=== PATIENT | female | born 1985 | race Caucasian/White ===

== ENCOUNTER 2017-11-01 14:23 | Emergency (ER) | payer MEDICAID, SELFPAY ==
[2017-11-01 14:27] VITALS: BP 123/84; PULSE 88; RESP 16; TEMP 36.6; O2SAT 97
--- NOTE | 2017-11-01 15:43 | ED.GENADUL_ITS ---
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 Otherwise follow-up with your primary care provider or [facility] for vaginal assessment as needed. To ensure that you received full treatment it is recommended that you have retesting in 1-2 months or if you become symptomatic. Due to medication he received in the emergency department please do not breast-feed for the next 48 hours and use formula. Referrals: Rufina Davies, [employer] [Primary Care Provider] - 1 week (For reassessment and vaginal exam) Discharge Data Discharge Date/Time-TO BE ENTERED AT DEPARTURE: 11/01/17 17:10 Medical Decision Making MDM Narrative Medical decision making narrative: Patient presenting to the emergency department for chief complaint of STD exposure. She states that he recently had testing and informed her that he had herpes but had not returned for any other test. Patient recently was seen by primary care and placed upon medication for concern of yeast infection but she states this is not cleared up. Patient is currently on her period and patient is deferring a vaginal exam and requesting that she have that done by her primary care provider or [facility]. Patient does state that she has been having some white discharge along with her. Urine gonorrhea chlamydia and urine was obtained. POC is negative so patient was treated with ceftriaxone, azithromycin, and placed upon Flagyl for possible trichomonas given her stating white discharge that had not cleared up. Patient denies any rash sores or lesions or any discomfort at this time and so I do not think that patient needs any antiviral medications but she was stated to follow-up with her primary care for reassessment in 1 week. Patient encouraged to return for any new or worsening symptoms including abdominal pain, nausea vomiting, fever chills after discussion of diagnosis and plan of care patient states no further needs, questions, or concerns at this time. HPI General Mode of arrival: ambulatory . Date/Time Provider Initiated Documentation: 11/01/17 15:34 . Limitations to Documentation: no limitations . Information obtained by: patient . History of Present Illness 32 year old F presents to the emergency department with the chief complaint of STD exposure, described as mild, Patient started experiencing this week(s) ( 2) and it has been constant. No relieving factors improve symptom(s), No exacerbating factors reported . Patient notes no other symptoms.. 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: 4 Review of Systems Constitutional Denies body ache(s), Denies chills and Denies fever(s) Cardiovascular Denies chest pain and Denies dyspnea Respiratory Denies dyspnea Gastrointestinal Denies abdominal pain, Denies nausea and Denies vomiting Genitourinary Reports as per HPI, Denies dysuria, Denies pelvic pain, Denies urinary incontinence, Reports vaginal discharge and Reports other (Currently having menses) Integumentary/Breasts Denies rash Neurologic Denies confusion and Denies sensory deficit Psychiatric Denies confusion PFSH Social History Smoking/Tobacco Use Status: Current every day Exam Const General: cooperative, no acute distress and not ill appearing Orientation: alert, awake and oriented x3 HENMT Mouth: moist mucous membranes Resp Effort & Inspection: normal respiratory effort, able to speak in complete sentences and no respiratory distress Cardio Rate: regular rate Rhythm: regular rhythm Skin General skin exam: no rashes or lesions noted Neuro General: alert, awake, oriented x3, moves all extremities and no focal motor deficits Sensory Exam: no sensory deficits noted Course Vital Signs Temperature 36.6 C 11/01/17 14:27 Pulse 88 11/01/17 14:27 Respiratory Rate 16 11/01/17 14:27 Blood Pressure 123/84 11/01/17 14:27 Pulse Oximetry 97 11/01/17 14:27 Temperature 36.6 C 11/01/17 14:27 Pulse 88 11/01/17 14:27 Respiratory Rate 16 11/01/17 14:27 Blood Pressure 123/84 11/01/17 14:27 Pulse Oximetry 97 11/01/17 14:27
[2017-11-01] MEDS: Azithromycin 250 MG TAB 1000 MG PO (16:58)
[2017-11-01] MEDS: cefTRIAXone 250 MG VIAL IM (16:58)
[2017-11-01] MEDS: metroNIDAZOLE 500 MG TAB PO (16:58)
[2017-11-01] MEDS: metroNIDAZOLE 500 MG TAB 1500 MG PO (17:05)
[2017-11-05 14:50] LABS: Chlamydia Result Negative; GC Result Negative; Specimen Description URINE
== END 2017-11-01 17:10 | disposition home or self-care (01) ==
PROVIDERS: Emergency Provider Nurse Practitioner Family; PCP Nurse Practitioner Adult Health
DX: Z20.2 Contact with and (suspected) exposure to infections with a predominantly sexual mode of transmission (principal)
CPT/HCPCS: 81025; 87491; 87591; 96372; 99284; J0696

== ENCOUNTER 2018-02-19 10:20 | Emergency (ER) | payer MEDICAID, SELFPAY ==
[2018-02-19 10:28] VITALS: BP 168/89; PULSE 83; RESP 16; TEMP 37; O2SAT 98
--- NOTE | 2018-02-19 10:38 | W.ED.GENAD ---
Discharge Plan Disposition Patient Disposition: HOME Condition: Improving Discharge Details Chief Complaint: Nk/Back Pain Clinical Impression: Low back pain Primary Care Provider: Rufina Davies ED Provider: Leonard Bernard Home Meds and New Rx's Prescriptions: New methocarbamol 500 mg tablet 500 mg PO Q6H PRN (Reason: Back pain or spasm) Qty: 10 RF: 0 Discharge Instructions Instructions: Low Back Strain (ED) Additional Instructions: Follow-up in clinic tomorrow as planned. Return for any acute concerns. Remove the Lidoderm patch in 12 hours. May use methocarbamol, as prescribed, as needed Medical Decision Making 33-year-old female with chronic low back pain for which she states she takes Percocet. She states she ran out of this medication last had a 10 days ago, has a follow-up appointment in clinic tomorrow. She did not fall or injure herself. She has no motor weakness, no sensory deficits. I discussed with her that she needs to follow-up with her prescriber for chronic narcotic refills. We will offer her Lidoderm patch and a small number of methocarbamol to be used as needed. She will follow-up in the [place] clinic tomorrow as planned. HPI General Mode of arrival: ambulatory. Date/Time Provider Initiated Documentation: 02/19/18 10:23. Limitations to Documentation: no limitations. Information obtained by: patient. History of Present Illness 33 year old F presents to the emergency department with the chief complaint of Chronic back pain, of note of medical, Quality is described as aching, and is localized to the back. Patient reports no radiation. Patient started experiencing this day(s) and it has been constant. Movement worsens symptoms . Patient notes no other symptoms.. Patient did receive the following treatments prior to arrival, none HPI Narrative: Chronic low back pain, unchanged, somewhat worsened since ran out of Percocet prescription for which she has an appointment to follow-up in clinic tomorrow. No numbness, tingling, weakness of the extremities. No fall or injury Related Data Home Medications Medication Instructions Recorded Confirmed methocarbamol 500 mg PO Q6H PRN #10 tab 02/19/18 Previous Rx's Medication Instructions Recorded methocarbamol 500 mg PO Q6H PRN #10 tab 02/19/18 Allergies Allergy/AdvReac Type Severity Reaction Status Date / Time latex AdvReac Intermediate Skin Rash Unverified 02/19/18 10:35 General Stated Complaint: Nk/Back Pain JAQUELINE: 4 Review of Systems Review of Systems 6 systems reviewed and otherwise negative [facility] Social History Smoking/Tobacco Use Status: Current every day Exam Narrative Exam Narrative: GEN: awake, alert, oriented 3. Pleasant, well groomed, interactive. HEAD: Normocephalic, atraumatic ENT: Mucous membranes moist, oropharynx unremarkable, External ear exam unremarkable EYES: PERRL, EOMI NECK: Full ROM, no LORA, no menigismus CHEST/RESP: Nontender, clear to auscultation bilateral, no wheeze/rhonchi/rales CARDIOVASCULAR: RRR, no murmur, rub easton. 2+ Rad pulse bilateral ABDOMEN: Soft, nontender, no mass. +Bowel sounds. Examination of the back reveals lumbar tenderness without focality. No step-off EXT: Full ROM, no edema, no rash Neuro: Grossly normal neurologic exam, conversant, interactive. Psych: Speech fluent, thoughts congruent, affect normal Course Vital Signs Temperature 37 C 02/19/18 10:28 Pulse 83 02/19/18 10:28 Respiratory Rate 16 02/19/18 10:28 Blood Pressure 168/89 H 02/19/18 10:28 Pulse Oximetry 98 02/19/18 10:28 Temperature 37 C 02/19/18 10:28 Temperature Source Temporal Artery Scan 02/19/18 10:28 Pulse 83 02/19/18 10:28 Respiratory Rate 16 02/19/18 10:28 Respiratory Effort Non-Labored 02/19/18 10:32 Blood Pressure 168/89 H 02/19/18 10:28 Blood Pressure Position Sitting 02/19/18 10:28 Pulse Oximetry 98 02/19/18 10:28 Oxygen Delivery Method Room Air 02/19/18 10:28 Oxygen Flow Rate 0 02/19/18 10:28 Pain Level 7 02/19/18 10:34
--- NOTE | 2018-02-19 10:41 | ED.GENADUL_ITS ---
Discharge Plan Disposition Patient Disposition: HOME Condition: Improving Discharge Details Chief Complaint: Nk/Back Pain Clinical Impression: Low back pain Primary Care Provider: Rufina Davies ED Provider: Leonard Bernard Home Meds and New Rx's Prescriptions: New methocarbamol 500 mg tablet 500 mg PO Q6H PRN (Reason: Back pain or spasm) Qty: 10 RF: 0 Discharge Instructions Instructions: Low Back Strain (ED) Additional Instructions: Follow-up in clinic tomorrow as planned. Return for any acute concerns. Remove the Lidoderm patch in 12 hours. May use methocarbamol, as prescribed, as needed Medical Decision Making 33-year-old female with chronic low back pain for which she states she takes Percocet. She states she ran out of this medication last had a 10 days ago, has a follow-up appointment in clinic tomorrow. She did not fall or injure herself. She has no motor weakness, no sensory deficits. I discussed with her that she needs to follow-up with her prescriber for chronic narcotic refills. We will offer her Lidoderm patch and a small number of methocarbamol to be used as needed. She will follow-up in the [place] clinic tomorrow as planned. HPI General Mode of arrival: ambulatory . Date/Time Provider Initiated Documentation: 02/19/18 10:23 . Limitations to Documentation: no limitations . Information obtained by: patient . History of Present Illness 33 year old F presents to the emergency department with the chief complaint of Chronic back pain, of note of medical, Quality is described as aching, and is localized to the back. Patient reports no radiation. Patient started experiencing this day(s) and it has been constant. Movement worsens symptoms . Patient notes no other symptoms.. Patient did receive the following treatments prior to arrival, none HPI Narrative: Chronic low back pain, unchanged, somewhat worsened since ran out of Percocet prescription for which she has an appointment to follow-up in clinic tomorrow. No numbness, tingling, weakness of the extremities. No fall or injury Related Data Home Medications Medication Instructions Recorded Confirmed methocarbamol 500 mg PO Q6H PRN #10 tab 02/19/18 Previous Rx's Medication Instructions Recorded methocarbamol 500 mg PO Q6H PRN #10 tab 02/19/18 Allergies Allergy/AdvReac Type Severity Reaction Status Date / Time latex AdvReac Intermediate Skin Rash Unverified 02/19/18 10:35 General Stated Complaint: Nk/Back Pain JAQUELINE: 4 Review of Systems Review of Systems 6 systems reviewed and otherwise negative [facility] Social History Smoking/Tobacco Use Status: Current every day Exam Narrative Exam Narrative: GEN: awake, alert, oriented 3. Pleasant, well groomed, interactive. HEAD: Normocephalic, atraumatic ENT: Mucous membranes moist, oropharynx unremarkable, External ear exam unremarkable EYES: PERRL, EOMI NECK: Full ROM, no LORA, no menigismus CHEST/RESP: Nontender, clear to auscultation bilateral, no wheeze/rhonchi/rales CARDIOVASCULAR: RRR, no murmur, rub easton. 2+ Rad pulse bilateral ABDOMEN: Soft, nontender, no mass. +Bowel sounds. Examination of the back reveals lumbar tenderness without focality. No step-off EXT: Full ROM, no edema, no rash Neuro: Grossly normal neurologic exam, conversant, interactive. Psych: Speech fluent, thoughts congruent, affect normal Course Vital Signs Temperature 37 C 02/19/18 10:28 Pulse 83 02/19/18 10:28 Respiratory Rate 16 02/19/18 10:28 Blood Pressure 168/89 H 02/19/18 10:28 Pulse Oximetry 98 02/19/18 10:28 Temperature 37 C 02/19/18 10:28 Temperature Source Temporal Artery Scan 02/19/18 10:28 Pulse 83 02/19/18 10:28 Respiratory Rate 16 02/19/18 10:28 Respiratory Effort Non-Labored 02/19/18 10:32 Blood Pressure 168/89 H 02/19/18 10:28 Blood Pressure Position Sitting 02/19/18 10:28 Pulse Oximetry 98 02/19/18 10:28 Oxygen Delivery Method Room Air 02/19/18 10:28 Oxygen Flow Rate 0 02/19/18 10:28 Pain Level 7 02/19/18 10:34
[2018-02-19] MEDS: Lidocaine 5% Patch 1 PATCH TP (10:46)
== END 2018-02-19 10:51 | disposition home or self-care (01) ==
LOC: ER 10:55
PROVIDERS: Emergency Provider Emergency Medicine; PCP Nurse Practitioner Adult Health
DX: M54.5 Low back pain (principal)
CPT/HCPCS: 99283

== ENCOUNTER 2018-12-27 17:07 | Emergency (ER) | payer MEDICARE, MEDICAID, SELFPAY ==
[2018-12-27 17:14] VITALS: BP 111/70; PULSE 78; RESP 20; TEMP 36.5; O2SAT 96
[2018-12-27] MEDS: Ibuprofen 600 MG TAB PO (18:01)
--- NOTE | 2018-12-27 18:18 | ED.GENADUL_ITS ---
Discharge Plan Disposition Patient Disposition: HOME Discharge Details Chief Complaint: GenMedical Clinical Impression: Headache Primary Care Provider: Rufina Davies ED Provider: Maurizio Lawler Home Meds and New Rx's Prescriptions: Continued fluticasone propion-salmeterol [Advair Diskus] 100-50 mcg/dose Blister With Device 1 puff INHALATION BID RF: 0 albuterol sulfate [ProAir HFA] 90 mcg/actuation Hfa Aerosol Inhaler 2 puff INHALATION QID PRNRF: 0 No Action hydrocodone-acetaminophen 5-325 mg Tablet 1 tab PO Q6H RF: 0 Discharge Instructions Instructions: General Headache (ED) Additional Instructions: Please take ibuprofen over the counter. Take 600mg by mouth every 6 hours as needed for pain. Please take acetaminophen (tylenol) - 650mg every 6 hours by mouth as needed for pain. Stop taking Excedrin. Please follow-up with your primary care physician as scheduled on Sunday. Given your chronic, intermittent headaches, please follow-up with neurology. Return to the ER immediately for any worsening or new concerning symptoms. Referrals: Rufina Davies NP [Primary Care Provider] - Natalie Lamas MD [ [facility] STAFF PHYSICIAN] - Medical Decision Making 33-year-old female with history of chronic headaches here with intermittent headache over the past 1 month. Patient is neurologically intact. Patient appears quite comfortable. Suspect migraines. Patient to be treated with anti-inflammatory and to be reassessed. I explained to patient that we could not refill her prescription for opioids for her chronic back pain and that she would have to see her primary care physician for this. Patient was given a dose of ibuprofen here in the emergency department and then requested discharge. I explained my recommended plan to include ED observation and reassessment and patient refused. Patient has decision-making capacity to make informed decision. I did inform her of the risks of not staying for additional observation. Patient verbalized understanding of those risks. She was instructed to follow-up with her primary care physician and neurology. Patient understands she can return to the emergency department at anytime for worsening or new concerning symptoms. HPI General Mode of arrival: ambulatory . Date/Time Provider Initiated Documentation: 12/27/18 17:35 . Limitations to Documentation: no limitations . Information obtained by: patient . HPI Narrative: 33-year-old female with history of chronic migraines times years, chronic low back pain, here today with chief complaint of headache. Patient notes right frontal/temporal headache today. She said she has been having headache intermittently over the past 1 month. She states that it comes and goes. More persistent of the past 2 weeks. This is not the worst headache of her life. It was not sudden onset. It is same as prior severe headaches that she has had. She has had some associated mild nausea. She also notes some photophobia. She denies visual change. No numbness or weakness. No neck stiffness. No fevers. Patient also notes that she has run out of her opioid analgesia for low back pain and plans to see her primary care physician on Sunday for refill. Related Data Home Medications Medication Instructions Recorded Confirmed albuterol sulfate [ProAir HFA] 2 puff INHALATION QID PRN 02/19/18 12/27/18 fluticasone propion-salmeterol 1 puff INHALATION BID 02/19/18 12/27/18 [Advair Diskus] hydrocodone-acetaminophen 1 tab PO Q6H 02/19/18 12/27/18 Allergies Allergy/AdvReac Type Severity Reaction Status Date / Time Penicillins Allergy Anaphylaxsi Unverified 12/27/18 17:20 s latex AdvReac Intermediate Skin Rash Unverified 12/27/18 17:20 General Stated Complaint: GenMedical JAQUELINE: 3 Review of Systems All systems reviewed & are unremarkable except as noted in HPI and below Constitutional Constitutional: Denies fever(s) Neurologic Neurologic: Reports as per HPI PFSH Medical History Asthma (Chronic) Back pain (Acute) C9 disk herniation per pt Surgical History Hx of appendectomy (Chronic) S/P cholecystectomy (Acute) Social History Smoking/Tobacco Use Status: Former Tobacco Use Alcohol Intake: never Drug use: Never Substance use type: does not use Do you feel safe at home: Yes Do you feel safe in your relationship?: Yes Exam Const General: cooperative and no acute distress Nutritional Appearance: obese Orientation: alert and awake [facility] Head: normocephalic, atraumatic and no temporal artery tenderness Mouth: moist mucous membranes Throat: posterior oropharynx normal Eyes Visual Garcia: normal visual garcia by confrontation Alignment and Position: alignment normal Conjunctivae: normal conjunctivae Sclera: normal sclerae Pupils: PERRL and accommodation normal EOM: EOM intact bilaterally Direct ophthalmoscopy: no papilledema Neck Neck: full ROM, no meningeal signs, trachea midline and supple Resp Auscultation: clear to auscultation bilaterally, no rales, no rhonchi and no wheezes Cardio Jugular venous pressure: no JVD Rate: regular rate and not tachycardic Rhythm: regular rhythm GI Palpation: soft, not firm, no guarding, no masses, not rigid and nontender Skin General skin exam: no rashes or lesions noted Neuro General: alert, awake, oriented x3 and tone normal Cranial Nerves: CN's II-XI intact bilaterally Cognition: normal cognition Speech: speech normal Motor: muscle tone normal throughout and strength 5/5 throughout Sensory Exam: no sensory deficits noted Coordination: Romberg test normal Extrem General: no edema Psych Appearance: grossly normal Mental Status: mental status grossly normal Speech and Movement: speech and movement normal Course Vital Signs Vital signs: Vital Signs Temperature 36.5 C 12/27/18 17:14 Pulse 78 12/27/18 17:14 Respiratory Rate 20 12/27/18 17:14 Blood Pressure 111/70 12/27/18 17:14 Pulse Oximetry 96 12/27/18 17:14 Temperature 36.5 C 12/27/18 17:14 Temperature Source Skin 12/27/18 17:14 Pulse 78 12/27/18 17:14 Respiratory Rate 20 12/27/18 17:14 Respiratory Effort Non-Labored 12/27/18 17:23 Blood Pressure 111/70 12/27/18 17:14 Blood Pressure Position Sitting 12/27/18 17:14 Pulse Oximetry 96 12/27/18 17:14 Oxygen Delivery Method Room Air 12/27/18 17:14 Oxygen Flow Rate 0 12/27/18 17:14 Pain Level 6 12/27/18 18:01
[2018-12-27 18:25] VITALS: RESP 18
== END 2018-12-27 18:25 | disposition home or self-care (01) ==
PROVIDERS: Emergency Provider Student in an Organized Health Care Education/Training Program; PCP Nurse Practitioner Adult Health
DX: R51 Headache (principal)
CPT/HCPCS: 99282

== ENCOUNTER 2019-03-22 18:48 | Emergency (ER) | payer MEDICARE, MEDICAID, SELFPAY ==
[2019-03-22 18:51] VITALS: BP 133/90; PULSE 97; RESP 23; TEMP 36.4; O2SAT 97
--- NOTE | 2019-03-22 19:09 | W.ED.GENAD ---
Discharge Plan Disposition Patient Disposition: HOME Condition: Good Discharge Details Chief Complaint: Nausea/Vomit/Diar Clinical Impression: Vomiting Primary Care Provider: Unknown,Unknown ED Provider: Sharyn Jones Home Meds and New Rx's Prescriptions: New ondansetron HCl [Zofran] 4 mg tablet 4 mg PO Q8H Qty: 12 RF: 0 Continued hydrocodone-acetaminophen 5-325 mg Tablet 1 tab PO Q6H RF: 0 fluticasone propion-salmeterol [Advair Diskus] 100-50 mcg/dose Blister With Device 1 puff INHALATION BID RF: 0 albuterol sulfate [ProAir HFA] 90 mcg/actuation Hfa Aerosol Inhaler 2 puff INHALATION QID PRNRF: 0 sertraline 50 mg Tablet 50 mg PO DAILY RF: 0 Discharge Instructions Instructions: Acute Nausea and Vomiting (ED) Additional Instructions: At this time your labs are notably reassuring. I feel it is likely that there is a virus causing your symptoms. Please drink 10 to 12 cups of water per day. Gradually advance your diet over the next 48 to 72 hours with rice, applesauce bananas and oatmeal. Please take Pepto-Bismol or Maalox to help with the diarrhea. If you notice any worsening of your symptoms, or any new symptoms such as blood in your stools or vomit, vomiting, diarrhea, fever, chills, shortness of breath, chest pain, numbness, weakness, or fainting , please return immediately to the emergency department for reevaluation. Please follow up with your primary care provider as soon as possible for reassessment and reevaluation. As always, it was a pleasure participating in your medical care today. Discharge Data Discharge Date/Time-TO BE ENTERED AT DEPARTURE: 03/22/19 21:30 Medical Decision Making <Sharyn Jones DO - Last Filed: 03/23/19 08:54> 1918 -- 34 yo F w/ a h/o asthma and chronic back pain presents with vomiting and diarrhea x 2 days. States she has had watery black stool and was mainly vomiting food and bile and now dry heaving. Last episode of vomiting and diarrhea this afternoon. She also admits to urinary frequency and anterior chest pain with movement of right arm. Denies recent antibiotics, recent travel or known sick contacts. Denies abdominal pain or known fever. Upon arrival to ED, access called back to the ED staff to state that patient was unresponsive in the car. Upon staff arrival, patient was awake and breathing sitting in the car but she states I was out of it . Patient was able to stand up and get into a wheelchair and answer questions appropriately but seemed dazed per staff. Vitals within normal limits. She appears uncomfortable but nontoxic. Anterior chest tender to palpation. She has epigastric, right upper quadrant and left upper quadrant tenderness. She has a history of cholecystectomy and appendectomy. Differential diagnosis includes gastroenteritis, gastritis, peptic ulcer disease, GERD,, etc. Suspect anterior chest pain is musculoskeletal from retching and vomiting as it is reproducible and worse with movement of her right arm. Will place an IV, screening labs, urinalysis, urine and give a dose of Zofran, Pepcid and GI cocktail in addition to fluids. Will hold on imaging at this time and reassess after medication and labs. Patient refused rectal exam. She denies taking iron. She denies hematemesis. 1999 --Case endorsed to Dr. Blount to follow-up on labs and patient response to medication. Medical Records Medical records reviewed: Yes I reviewed the patient's medical records. Lab Data Lab results reviewed: Yes I reviewed the patient's lab results. <Venkat Blount, DO - Last Filed: 03/22/19 21:26> Case was signed out to me by my colleague Dr. Jones. Please refer to her assessment and plan and for initial assessment and plan. Differential is highest for viral gastroenteritis. Patient refused rectal exam. Upon reassessment after fluids, the patient is feeling much better and states that she would like to go home to her own bed. She has had no more vomiting, she has been able to keep foods and liquids down now. Vital signs are stable, laboratory work-up is relatively unremarkable with no significant electrolyte abnormality, troponin normal. Urinalysis and unremarkable. At this time signs and symptoms are clinically consistent with a viral gastroenteritis and clinically inconsistent with an acute surgical abdomen, appendicitis or other life-threatening intra-abdominal abnormality. No clinical evidence of GI bleed, hemoglobin stable. This time I feel the patient be safely discharged home. Will give Zofran, recommend continued fluids close follow-up. I have extensively reviewed the treatment plan and discharge instructions with the patient. I have addressed all patient concerns at this time. The patient was made aware of what symptoms to monitor for that would warrant a return to the emergency department. Discussed the plan with the patient, they demonstrate verbal understanding and agreement with our assessment and plan at this time. HPI <Sharyn Jones DO - Last Filed: 03/23/19 08:54> General Mode of arrival: wheelchair. Date/Time Provider Initiated Documentation: 03/22/19 18:49. Limitations to Documentation: no limitations. Information obtained by: patient. History of Present Illness 34 year old F presents to the emergency department with the chief complaint of Vomiting and diarrhea, anterior chest pain with R arm movement, and is localized to the chest. Patient reports no radiation. Patient started experiencing this day(s) (2) and it has been intermittent. No relieving factors improve symptom(s), No exacerbating factors reported . Patient notes chest pain (only with movement of R arm), malaise, nausea/vomiting and weakness; denies confusion, cough, diaphoresis, fever/chills, headaches, loss of appetite, rash, seizure, shortness of breath and syncope. Patient did receive the following treatments prior to arrival, none Related Data Home Medications Medication Instructions Recorded Confirmed albuterol sulfate [ProAir HFA] 2 puff INHALATION QID PRN 02/19/18 03/22/19 fluticasone propion-salmeterol 1 puff INHALATION BID 02/19/18 03/22/19 [Advair Diskus] hydrocodone-acetaminophen 1 tab PO Q6H 02/19/18 03/22/19 ondansetron HCl [Zofran] 4 mg PO Q8H #12 tab 03/22/19 sertraline 50 mg PO DAILY 03/22/19 03/22/19 Previous Rx's Medication Instructions Recorded ondansetron HCl [Zofran] 4 mg PO Q8H #12 tab 03/22/19 Allergies Allergy/AdvReac Type Severity Reaction Status Date / Time Penicillins Allergy Anaphylaxsi Unverified 03/22/19 18:54 s latex AdvReac Intermediate Skin Rash Unverified 03/22/19 18:54 General Stated Complaint: Nausea/Vomit/Diar JAQUELINE: 3 Review of Systems <DO Yamilex Reaves Last Filed: 03/23/19 08:54> All systems reviewed & are unremarkable except as noted in HPI and below Constitutional Constitutional: Reports as per HPI, Denies chills and Denies fever(s) Eyes Eyes: Denies blurry vision ENT Ears, Nose, Mouth, and Throat: Denies dizziness, Denies sore throat and Denies throat swelling Cardiovascular Cardiovascular: Denies chest pain and Denies dyspnea Respiratory Respiratory: Denies cough and Denies dyspnea Gastrointestinal Gastrointestinal: Denies abdominal pain, Reports diarrhea and Reports vomiting Genitourinary Genitourinary: Denies hematuria and Denies dysuria Musculoskeletal Musculoskeletal: Denies back pain and Denies numbness Integumentary/Breasts Skin/Breast: Denies lesions and Denies rash Neurologic Neurologic: Denies dizziness, Denies focal weakness and Denies numbness Allergic/Immunologic Allergic/Immunologic: Denies throat swelling PFSH <Sharyn Jones DO - Last Filed: 03/23/19 08:54> Medical History Asthma (Chronic) Back pain (Acute) C9 disk herniation per pt Surgical History Hx of appendectomy (Chronic) S/P cholecystectomy (Acute) Social History Smoking/Tobacco Use Status: Former Tobacco Use Alcohol Intake: never Drug use: Never Substance use type: does not use Do you feel safe at home: Yes Do you feel safe in your relationship?: Yes Exam <Sharyn Jones DO - Last Filed: 03/23/19 08:54> Const General: cooperative, healthy appearing and no acute distress [facility] Head: normal to inspection Face and sinus: normal facial exam Eyes General: appearance normal, both eyes and all related structures EOM: EOM intact bilaterally Neck Neck: normal visual inspection and No submandibular swelling Lymphatic: no lymphadenopathy noted Chest Chest: normal inspection of the chest and no tenderness Resp Effort & Inspection: normal respiratory effort and able to speak in complete sentences Auscultation: clear to auscultation bilaterally Cardio Rate: regular rate Rhythm: regular rhythm GI Inspection: normal to inspection Palpation: soft, not firm, not rigid and nontender Auscultation: normal bowel sounds Skin General skin exam: no rashes or lesions noted Neuro General: alert, awake and oriented x3 Cognition: normal cognition Speech: speech normal Motor: muscle tone normal throughout Sensory Exam: no sensory deficits noted Extrem General: normal to inspection, full ROM, normal capillary refill, no calf tenderness bilaterally and no edema Psych Appearance: grossly normal Mental Status: mental status grossly normal Speech and Movement: speech and movement normal Affect: normal affect Course <Sharyn Jones, DO - Last Filed: 03/23/19 08:54> Vital Signs Vital signs: Vital Signs Temperature 97.5 F L 03/22/19 18:51 Pulse 97 H 03/22/19 18:51 Respiratory Rate 23 03/22/19 18:51 Blood Pressure 133/90 03/22/19 18:51 Pulse Oximetry 97 03/22/19 18:51 Temperature 97.5 F L 03/22/19 18:51 Temperature Source Skin 03/22/19 18:51 Pulse 97 H 03/22/19 18:51 Respiratory Rate 23 03/22/19 18:51 Respiratory Effort 03/22/19 18:55 Blood Pressure 133/90 03/22/19 18:51 Blood Pressure Position Supine 03/22/19 18:51 Pulse Oximetry 97 03/22/19 18:51 Oxygen Delivery Method Room Air 03/22/19 18:51 Oxygen Flow Rate 0 03/22/19 18:51 Pain Level 5 03/22/19 18:55
[2019-03-22] MEDS: Ondansetron 4 MG/2 ML VIAL IVP (19:40)
[2019-03-22] MEDS: Normal Saline 1,000 ML 1000 ML IV (19:40)
[2019-03-22] MEDS: FAMOTIDINE 20 MG/50 ML BAG 200 MG IVPB (19:42)
[2019-03-22] MEDS: Ketorolac 30 MG/ML VIAL IVP (19:42)
[2019-03-22 19:54] LABS: Abs Immature Grans 0.03 k/cumm (0.0-0.09); Absolute Eosinophil Count 0.48 k/cumm (0.0-0.7); Absolute Lymphocyte Count 2.34 k/cumm (1.2-3.4); Absolute Monocyte Count 0.74 k/cumm (0.11-0.7); Basophils % 0.3; HCT 45.3 % (36.0-46.0); HGB 14.9 g/dL (12.0-15.5); Immature Grans % 0.3 %; Lymphocytes % 19.6; Mean Corp. HGB Concentration 32.9 g/dL (32.0-36.0); Mean Corpuscular Hemoglobin 27.9 pg (27.0-33.0); Mean Corpuscular Volume 84.7 fL (80-95); Mean Platelet Volume 8.9 fL (8.0-11.0); Monocytes % 6.2; Neutrophils % 69.6; Platelet Count 330 x1000/uL (130-400); RBC 5.35 m/cumm (4.00-5.20); RBC Distribution Width 13.8 % (11.7-14.6); White Blood Cell Count 11.92 k/cumm (4.4-10.8)
[2019-03-22 19:58] LABS: Absolute Basophil Count 0.04 k/cumm (0.0-0.2)
[2019-03-22 20:06] LABS: ALT 27 U/L (14-59); AST 16 U/L (15-37); Albumin 3.3 g/dL (3.4-5.0); Alkaline Phosphatase 91 U/L (46-116); Anion Gap 12.5 mmol/L (3-11); BUN 6 mg/dL (7-18); Bilirubin, Total 0.2 mg/dL (0.2-1.0); CO2 21.5 mmol/L (21.0-32.0); CREATININE 0.84 mg/dL (0.55-1.02); Calcium 8.6 mg/dL (8.5-10.1); Chloride 106 mmol/L (98-107); Glucose 149 mg/dL (74-106); Potassium 3.5 mmol/L (3.5-5.1); Sodium 140 mmol/L (136-145); Total Protein 7.2 g/dL (6.4-8.2)
[2019-03-22 20:11] LABS: Lipase 55 U/L (73-393); Magnesium 1.8 mg/dL (1.8-2.4)
[2019-03-22 20:12] LABS: Troponin I < 0.05 ng/Ml (<0.06)
[2019-03-22 21:06] LABS: Bilirubin Negative (Negative); Blood Negative (Negative); Clarity Clear (Clear); Glucose Negative (Negative); Ketones Negative (Negative); Leukocyte Esterase Negative (Negative); Nitrite Negative (Negative); Urobilinogen 0.2 EU/dL (Up TO 0.2)
[2019-03-22] MEDS: Ondansetron O.D.T. 4 MG TABEF, 3 TABS/BTL PO (21:23)
== END 2019-03-22 21:30 | disposition home or self-care (01) ==
PROVIDERS: Emergency Provider Physician Assistant
DX: R11.2 Nausea with vomiting, unspecified (principal); R10.10 Upper abdominal pain, unspecified; R10.13 Epigastric pain; A08.4 Viral intestinal infection, unspecified
CPT/HCPCS: 36415; 80053; 81025; 83690; 96361; 96365; 96375; 99284; 81003; 83735; 84484; 85025; J1885; J2405

== ENCOUNTER 2019-11-29 12:55 | Emergency (ER) | payer MEDICARE, MEDICAID, SELFPAY ==
[2019-11-29 12:57] VITALS: BP 144/84; PULSE 103; RESP 16; O2SAT 96
[2019-11-29] MEDS: Lidocaine 2% Jelly 11 ML SYR UR (13:21)
--- NOTE | 2019-11-29 13:57 | ED.GENADUL_ITS ---
Discharge Plan Disposition Patient Disposition: HOME Condition: Stable Discharge Details Clinical Impression: Constipation, Fecal impaction in rectum Primary Care Provider: Rufina Quintanilla ED Provider: Maurizio Lawler Home Meds and New Rx's Prescriptions: New docusate sodium [Dulcolax Stool Softener (dss)] 100 mg capsule 100 mg PO BID Qty: 60 RF: 0 Continued fluticasone propion-salmeterol [Advair Diskus] 100-50 mcg/dose Blister With Device 1 puff INHALATION BID RF: 0 albuterol sulfate [ProAir HFA] 90 mcg/actuation Hfa Aerosol Inhaler 2 puff INHALATION QID PRNRF: 0 sertraline 50 mg Tablet 50 mg PO DAILY RF: 0 ondansetron HCl [Zofran] 4 mg tablet 4 mg PO Q8H Qty: 12 RF: 0 Discontinued hydrocodone-acetaminophen 5-325 mg Tablet 1 tab PO Q6H RF: 0 Discharge Instructions Instructions: Constipation (ED), Fecal Impaction (ED) Additional Instructions: Stop taking Vicodin. Instead take Tylenol [id number], dose according to label. Increase liquids in your diet. Start stool softener prescribed. Please contact your primary care physician to arrange follow-up. Return to the ER for any worsening or new concerning symptoms. Referrals: Rufina Quintanilla [Primary Care Provider] - Medical Decision Making 34-year-old female here with constipation for the past 3 days, fecal impaction in the rectum, lower abdominal discomfort. No peritoneal findings on exam. Provided verbal consent for rectal disimpaction. Lidocaine mucosal jelly was applied. Manual disimpaction was attempted by me and discontinued as result of discomfort and inability to manipulate stool. Soapsuds enema was administered by nursing. Patient had large solid bowel movement and on reassessment pain completely resolved. Disposition decision was made weighing the risks and benefits of hospitalization versus outpatient treatment, the risk for further decompensation, and the patient's wishes. The patient was stable and requested discharge. Prior to discharge, my usual and customary return precautions were reviewed with the patient - this included follow-up instructions and reason to return to the emergency department if condition worsens, does not improve as expected, or other new concerns arise. HPI General Mode of arrival: ambulatory . Date/Time Provider Initiated Documentation: 11/29/19 13:08 . Limitations to Documentation: no limitations . Information obtained by: patient . HPI Narrative: 34-year-old female is currently on hydrocodone for low back pain over the past 3 years, presents with chief complaint of constipation. Patient notes that she has a large lump of poop in her rectum that she cannot pass. She has associated pain in her rectum and fullness in her abdomen. Symptoms have persisted for the past 3 days. Symptoms are severe with no modifiers. She did attempt [id number] enema without relief. Related Data Home Medications Medication Instructions Recorded Confirmed albuterol sulfate [ProAir HFA] 2 puff INHALATION QID PRN 02/19/18 11/29/19 fluticasone propion-salmeterol 1 puff INHALATION BID 02/19/18 11/29/19 [Advair Diskus] ondansetron HCl [Zofran] 4 mg PO Q8H #12 tab 03/22/19 11/29/19 sertraline 50 mg PO DAILY 03/22/19 11/29/19 docusate sodium [Dulcolax Stool 100 mg PO BID #60 cap 11/29/19 Softener (dss)] Previous Rx's Medication Instructions Recorded ondansetron HCl [Zofran] 4 mg PO Q8H #12 tab 03/22/19 docusate sodium [Dulcolax Stool 100 mg PO BID #60 cap 11/29/19 Softener (dss)] Allergies Allergy/AdvReac Type Severity Reaction Status Date / Time Penicillins Allergy Anaphylaxsi Unverified 11/29/19 13:03 s latex AdvReac Intermediate Skin Rash Unverified 11/29/19 13:03 General Stated Complaint: Abd Prob JAQUELINE: 3 Review of Systems All systems reviewed & are unremarkable except as noted in HPI and below Gastrointestinal Gastrointestinal: Reports as per HPI PFSH Medical History (Updated 11/29/19 @ 14:12 by Maurizio Lawler MD) Asthma Back pain C9 disk herniation per pt Surgical History Hx of appendectomy S/P cholecystectomy Social History Smoking/Tobacco Use Status: Former Tobacco Use Alcohol Intake: never Drug use: Never Substance use type: does not use Do you feel safe at home: Yes Do you feel safe in your relationship?: Yes Exam Const General: cooperative and uncomfortable HENNC Mouth: moist mucous membranes Eyes Conjunctivae: normal conjunctivae Sclera: normal sclerae Neck Neck: trachea midline and supple Resp Auscultation: clear to auscultation bilaterally, no rales, no rhonchi and no wheezes Cardio Rate: regular rate and not tachycardic Rhythm: regular rhythm GI Palpation: soft, not firm, no guarding, no masses, not rigid and tender in the LLQ and in the RLQ Auscultation: hypoactive bowel sounds Rectal Exam - female: normal sphincter tone, fecal impaction, No fissure, No hemorrhoids, No mass and other (Loose stool from rectum) Skin General skin exam: no rashes or lesions noted Neuro General: patient alert, patient awake, patient oriented x3 and tone normal Extrem General: no edema Psych Appearance: grossly normal Mental Status: mental status grossly normal Speech and Movement: speech and movement normal Course Vital Signs Vital signs: Vital Signs Pulse 103 H 11/29/19 12:57 Respiratory Rate 16 11/29/19 12:57 Blood Pressure 144/84 H 11/29/19 12:57 Pulse Oximetry 96 11/29/19 12:57 Pulse 103 H 11/29/19 12:57 Respiratory Rate 16 11/29/19 12:57 Respiratory Effort Non-Labored 11/29/19 13:02 Blood Pressure 144/84 H 11/29/19 12:57 Blood Pressure Position Sitting 11/29/19 12:57 Pulse Oximetry 96 11/29/19 12:57 Oxygen Delivery Method Room Air 11/29/19 12:57 Oxygen Flow Rate 0 11/29/19 12:57 Pain Level 10 11/29/19 12:57
[2019-11-29 14:50] VITALS: BP 136/75; PULSE 84; RESP 16; TEMP 36.5; O2SAT 96
== END 2019-11-29 14:50 | disposition home or self-care (01) ==
LOC: ER 14:45
PROVIDERS: Emergency Provider Student in an Organized Health Care Education/Training Program; PCP Physician Assistant Medical
DX: K56.41 Fecal impaction (principal); R10.30 Lower abdominal pain, unspecified; T40.2X5A Adverse effect of other opioids, initial encounter; Z79.891 Long term (current) use of opiate analgesic
CPT/HCPCS: 96372; 99284; 99283

== ENCOUNTER → 2019-12-24 09:25 | Outpatient (BNVA) | payer MEDICARE, MEDICAID, SELFPAY | PROVIDERS: PCP Physician Assistant Medical; Referring Provider Physician Assistant Medical; Visit Provider Surgery | DX: K62.89 Other specified diseases of anus and rectum (principal); T40.2X5A Adverse effect of other opioids, initial encounter; M54.5 Low back pain; G89.29 Other chronic pain; E66.01 Morbid (severe) obesity due to excess calories; K59.03 Drug induced constipation | CPT/HCPCS: 99202; 99213 ==

== ENCOUNTER 2021-02-16 18:04 | Emergency (ER) | payer MEDICARE, MEDICAID, SELFPAY ==
[2021-02-16] VITALS (12 sets, daily range): BP systolic 128–146; BP diastolic 74–100; PULSE 91–116; RESP 16–20; TEMP 36.7; O2SAT 96–99
[2021-02-16] MEDS: Lactated Ringers 1,000 ML 1000 ML IV (18:50)
[2021-02-16] MEDS: Ondansetron 4 MG/2 ML VIAL IVP (19:13)
[2021-02-16 19:14] LABS: Abs Immature Grans 0.06 10^3/uL (0.0-0.06); Absolute Basophil Count 0.04 10^3/uL (0.0-0.2); Absolute Eosinophil Count 0.36 10^3/uL (0.0-0.7); Absolute Lymphocyte Count 1.32 10^3/uL (1.2-3.4); Absolute Monocyte Count 0.59 10^3/uL (0.1-0.8); Basophils % 0.4; Eosinophils % 3.2; HCT 42.7 % (36.0-46.0); HGB 13.1 g/dL (11.2-15.7); Immature Grans % 0.5; Lymphocytes % 11.8; MCH 24.8 pg (27.0-33.0); MCHC 30.7 % (32.0-36.0); MCV 80.7 fL (80-95); MPV 8.8 fL (8.0-11.0); Monocytes % 5.3; Neutrophils % 78.8; Nucleated RBC 0 %; Platelet Count 446 10^3/uL (130-400); RBC 5.29 10^6/uL (3.93-5.22); RDW-SD 41.1 fL; WBC 11.17 10^3/uL (4.4-10.8)
[2021-02-16 19:24] LABS: ALT 44 U/L (14-59); AST 20 U/L (15-37); Albumin 3.6 g/dL (3.4-5.0); Alkaline Phosphatase 95 U/L (46-116); Anion Gap 10.2 mmol/L (3-11); BUN 14 mg/dL (7-18); Bilirubin, Total 0.2 mg/dL (0.2-1.0); CO2 25.8 mmol/L (21.0-32.0); Calcium 9.2 mg/dL (8.5-10.1); Chloride 103 mmol/L (98-107); Glucose 100 mg/dL (74-106); Magnesium 1.7 mg/dL (1.8-2.4); Potassium 4.2 mmol/L (3.5-5.1); Sodium 139 mmol/L (136-145); Total Protein 7.9 g/dL (6.4-8.2)
--- NOTE | 2021-02-16 19:24 | ED.GENADUL_ITS ---
Discharge Plan Disposition Patient Disposition: HOME Condition: Stable Discharge Details Clinical Impression: Viral illness Primary Care Provider: Carlota Jason ED Provider: Maurizio Lawler Home Meds and New Rx's Prescriptions: Continued meloxicam 7.5 mg tablet 7.5 mg PO BID RF: 0 polyethylene glycol 3350 [Miralax] 17 gram/dose powder 17 g PO PRN PRNRF: 0 multivitamin Tablet 1 tab PO DAILY RF: 0 omeprazole 20 mg capsule,delayed release(DR/EC) 20 mg PO DAILY RF: 0 senna 8.6 mg capsule 8.6 mg PO DAILY RF: 0 fluticasone propion-salmeterol [Advair Diskus] 100-50 mcg/dose Blister With Device 1 puff INHALATION BID RF: 0 albuterol sulfate [ProAir HFA] 90 mcg/actuation Hfa Aerosol Inhaler 2 puff INHALATION QID PRNRF: 0 sertraline 50 mg Tablet 50 mg PO DAILY RF: 0 ondansetron HCl [Zofran] 4 mg tablet 4 mg PO Q8H Qty: 12 RF: 0 tramadol 50 mg Tablet 50 mg PO BID RF: 0 Discontinued hydrocodone-acetaminophen 5-325 mg tablet 1 tab PO Q6H PRNRF: 0 Discharge Instructions Instructions: Viral Syndrome (ED), COVID-19 (Coronavirus Disease 2019) (ED) Additional Instructions: Please drink plenty of fluids to stay hydrated and allow for plenty of rest. Please follow-up with your primary care physician -call tomorrow to discuss your current illness and to arrange timely follow-up. A Covid test was performed today and results are pending. If you are positive for Covid, please discuss antiviral treatment versus monoclonal antibody treatment with your primary care physician. Maintain home isolation until Covid test is normal or cleared by your doctor. Return to the ER immediately for any worsening or new concerning symptoms including difficulty breathing or shortness of breath, chest pain, or worsening condition. Referrals: Carlota Jason [Primary Care Provider] - Medical Decision Making 1925 --36-year-old female vaccinated but not boosted for Covid, here with symp toms consistent with viral infection, saturating well in no respiratory distress but is tachycardic with recent nausea and diarrhea. Patient has no chest pain and no leg swelling or calf tenderness. Patient has had recent exposure to Covid positive relatives. I am concerned about COVID-19. Concern for mild hypokalemia and will provide IV fluid bolus. Screening labs to assess for electrolyte abnormalities. I will send Covid test. Zofran IV for nausea. 2039 --labs reviewed and nondiagnostic. Patient was reassessed after IV fluid and heart rate has improved. Patient feeling better has had no vomiting. Tolerating oral intake. Plan for discharge with outpatient follow-up. I did explain to patient that should she be Covid positive given her BMI she does meet criteria for monoclonal antibody treatment and also as an alternative antiviral treatment. I encouraged her to follow-up with her primary care physician tomorrow to discuss continued outpatient treatment. Patient was provided usual customary discharge instructions encouraged to return immediately should she have any worsening or new concerns. HPI General Mode of arrival: ambulatory . Date/Time Provider Initiated Documentation: 02/16/21 18:12 . Limitations to Documentation: no limitations . Information obtained by: patient . HPI Narrative: 36-year-old female with history of morbid obesity, vaccinated against Covid but has not received boosters to date, here with chief complaint of not feeling well. Patient notes she has had intermittent fever, cough, sore throat, body aches, nausea and diarrhea for the past 3-4 days. Patient's relative who she lives with has tested positive for Covid. Pain symptoms are moderate with no modifiers. She has no associated chest pain or shortness of breath. No leg swelling or calf pain. Patient denies abdominal pain. Related Data Home Medications Medication Instructions Recorded Confirmed albuterol sulfate [ProAir HFA] 2 puff INHALATION QID PRN 02/19/18 02/16/21 fluticasone propion-salmeterol 1 puff INHALATION BID 02/19/18 02/16/21 [Advair Diskus] ondansetron HCl [Zofran] 4 mg PO Q8H #12 tab 03/22/19 02/16/21 sertraline 50 mg PO DAILY 03/22/19 02/16/21 meloxicam 7.5 mg tablet 7.5 mg PO BID tab 12/19/19 02/16/21 multivitamin 1 tab PO DAILY 12/19/19 02/16/21 omeprazole 20 mg capsule,delayed 20 mg PO DAILY 12/19/19 02/16/21 release polyethylene glycol 3350 17 17 g PO PRN PRN 12/19/19 02/16/21 gram/dose oral powder sennosides 8.6 mg capsule 8.6 mg PO DAILY 12/19/19 02/16/21 tramadol 50 mg PO BID 02/16/21 02/16/21 Previous Rx's Medication Instructions Recorded ondansetron HCl [Zofran] 4 mg PO Q8H #12 tab 03/22/19 Allergies Allergy/AdvReac Type Severity Reaction Status Date / Time Penicillins Allergy Anaphylaxsi Unverified 02/16/21 18:24 s latex AdvReac Intermediate Skin Rash Unverified 02/16/21 18:24 General Stated Complaint: Nausea/Vomit/Diar JAQUELINE: 3 Review of Systems All systems reviewed & are unremarkable except as noted in HPI and below Constitutional Constitutional: Reports as per HPI and Reports fever(s) Gastrointestinal Gastrointestinal: Reports as per HPI PFSH All Active Problems (Updated 02/16/21 @ 20:29 by Maurizio Lawler MD) Viral illness (Acute) Constipation due to opioid therapy (Acute) Chronic low back pain (Acute) Insomnia (Acute) Intellectual functioning disability (Acute) Depressive disorder (Chronic) PTSD (post-traumatic stress disorder) (Acute) Morbid obesity (Acute) Vomiting (Acute) Medical History Asthma Back pain C9 disk herniation per pt Surgical History Hx of appendectomy S/P cholecystectomy Social History Smoking/Tobacco Use Status: Former Tobacco Use Smoking risk assessment performed?: Yes Alcohol Intake: never Drug use: Occasionally Substance use type: marijuana Current gender identity: female Do you feel safe at home: Yes Do you feel safe in your relationship?: Yes Exam Const General: cooperative and no acute distress HENMT Head: normocephalic Mouth: moist mucous membranes Throat: posterior oropharynx normal Eyes Conjunctivae: normal conjunctivae Sclera: normal sclerae Neck Neck: trachea midline and supple Resp Auscultation: no rales, rhonchi (bilateral) and no wheezes Cardio Rate: tachycardic Rhythm: regular rhythm Heart Sounds: no murmurs GI Palpation: soft, not firm, no guarding, no masses, not rigid and nontender Skin General skin exam: no rashes or lesions noted Neuro General: patient alert, patient awake, patient oriented x3 and tone normal Extrem General: no calf tenderness and no edema Psych Appearance: grossly normal Mental Status: mental status grossly normal Speech and Movement: speech and movement normal Course Vital Signs Vital signs: Vital Signs Temperature 36.7 C 02/16/21 18:16 Pulse 116 H 02/16/21 18:16 Respiratory Rate 20 02/16/21 18:16 Blood Pressure 146/100 H 02/16/21 18:16 Pulse Oximetry 97 02/16/21 18:16 Temperature 36.7 C 02/16/21 18:16 Pulse 116 H 02/16/21 18:16 Respiratory Rate 20 02/16/21 18:16 Respiratory Effort 02/16/21 18:19 Blood Pressure 146/100 H 02/16/21 18:16 Blood Pressure Position Sitting 02/16/21 18:16 Pulse Oximetry 97 02/16/21 18:16 Oxygen Delivery Method Room Air 02/16/21 18:16 Oxygen Flow Rate 0 02/16/21 18:16 Lab/Test Results Lab/Test Results: Laboratory Tests Range/Units 02/16/21 18:55 WBC (4.4-10.8) 10^3/uL 11.17 H RBC (3.93-5.22) 10^6/uL 5.29 H Hgb (11.2-15.7) g/dL 13.1 Hct (36.0-46.0) % 42.7 MCV (80-95) fL 80.7 MCH (27.0-33.0) pg 24.8 L MCHC (32.0-36.0) % 30.7 L RDW (11.7-14.6) % 14.0 Plt Count (130-400) 10^3/uL 446 H MPV (8.0-11.0) fL 8.8 Immature Gran % 0.5 Neutrophils % 78.8 Lymphocytes % 11.8 Monocytes % 5.3 Eosinophils % 3.2 Basophils % 0.4 Nucleated RBC % % 0 Absolute Neutrophils (1.2-6.7) 10^3/uL 8.80 H Absolute Lymphocytes (1.2-3.4) 10^3/uL 1.32 Absolute Monocytes (0.1-0.8) 10^3/uL 0.59 Absolute Eosinophils (0.0-0.7) 10^3/uL 0.36 Absolute Basophils (0.0-0.2) 10^3/uL 0.04
[2021-02-18 16:54] LABS: COVID-19 RT-PCR UVMMC Result Positive (Negative)
--- NOTE | 2021-02-18 17:37 | W.ED.FU ---
I attempted to call patient, her mother answered her phone, she has not listed under contact, left message to return my phone call, patient not yet made aware regarding Covid positive finding, 1738 on February 18, 2021
--- NOTE | 2021-02-19 08:14 | NUR.NOTE ---
Called patient's contact printer dry film; Dedra Viveros, who is on her HIPPA form, to notify Gisela to call [facility] because her message box is full and we are unable to contact her, phone number left was [phone]. Katie Magdaleno Nursing Note:
--- NOTE | 2021-02-19 15:34 | NUR.NOTE ---
Nursing Note: Attempts made to contact patient on 02/18/21 and 02/19/21. Mailbox full. Letter sent informing patient of Positive Covid result. Instructed to call ER for care and quarantine details.
--- NOTE | 2021-02-24 10:11 | W.ED.FU ---
Date of service: 02/24/21 Time of Service: 10:11 Follow Up Plan: Patient did call the ER, multiple calls and been made to the patient to touch base with her that her COVID test was positive. The patient was eventually sent a letter, she received that letter and called back today. She states that she still has cough, intermittent fever, has lost her taste and smell. She does not have a pulse oximeter. I have recommended that she have a family member get a pulse oximeter and then we discussed levels for which to monitor. We discussed recommendations for vitamin supplementation, plenty of fluids, and also discussed red flags for which to return. I have extensively reviewed the treatment plan and discharge instructions with the patient. I have addressed all patient concerns at this time. The patient was made aware of what symptoms to monitor for that would warrant a return to the emergency department. Discussed the plan with the patient, they demonstrate verbal understanding and agreement with our assessment and plan at this time. The documentation in this chart was dictated using [employer] dictation software. Please excuse any dictation errors.
== END 2021-02-16 20:55 | disposition home or self-care (01) ==
PROVIDERS: Emergency Provider Student in an Organized Health Care Education/Training Program; PCP Physician Assistant Medical
DX: U07.1 COVID-19 (principal); R00.0 Tachycardia, unspecified; R11.0 Nausea; R19.7 Diarrhea, unspecified; E87.6 Hypokalemia
CPT/HCPCS: 80053; 96361; 96374; 99284; U0003; U0005; 83735; 85025; 99283; J2405

== ENCOUNTER → 2021-06-23 00:56 | Outpatient (CLI) | payer MEDICARE, MEDICAID, SELFPAY | PROVIDERS: PCP Physician Assistant Medical; Visit Provider Physician Assistant Medical ==

== ENCOUNTER 2021-07-25 12:55 | Emergency (ER) | payer MEDICARE, MEDICAID, SELFPAY ==
[2021-07-25 13:02] VITALS: BP 129/100; PULSE 96; RESP 16; TEMP 36.4; O2SAT 98
--- NOTE | 2021-07-25 13:59 | NUR.NOTE ---
Nursing Note: Pt seen for initial eval and then eloped.
--- NOTE | 2021-07-26 09:54 | W.ED.GENAD ---
Discharge Plan Disposition Patient Disposition: AGAINST MEDICAL ADVICE Discharge Details Clinical Impression: Acute leg pain Primary Care Provider: Carlota Jason ED Provider: Rita Cisneros Home Meds and New Rx's Prescriptions: Continued meloxicam 7.5 mg tablet 7.5 mg PO BID polyethylene glycol 3350 [Miralax] 17 gram/dose powder 17 g PO PRN PRN multivitamin Tablet 1 tab PO DAILY omeprazole 20 mg capsule,delayed release(DR/EC) 20 mg PO DAILY senna 8.6 mg capsule 8.6 mg PO DAILY fluticasone propion-salmeterol [Advair Diskus] 100-50 mcg/dose Blister With Device 1 puff INHALATION BID albuterol sulfate [ProAir HFA] 90 mcg/actuation Hfa Aerosol Inhaler 2 puff INHALATION QID PRN sertraline 50 mg Tablet 50 mg PO DAILY tramadol 50 mg Tablet 50 mg PO BID levothyroxine 125 mcg tablet 1 tab PO DAILY Label Comments: TAKE ONE TABLET BY MOUTH EVERY DAY Trulicity 3 mg/0.5 mL pen injector SUBCUT QWEEK Label Comments: INJECT 3MG SUBCUTANEOUSLY EVERY WEEK Discharge Data Discharge Date/Time-TO BE ENTERED AT DEPARTURE: 07/25/21 13:56 Medical Decision Making Patient eloped prior to x-ray being performed, unfortunately I was not able to reassess her prior to her elopement No additional intervention performed Of note, patient was alert and oriented of decisional capacity at time of my initial assessment HPI General Date/Time Provider Initiated Documentation: 07/25/21 13:04. HPI Narrative: 36-year-old female presents with right lower extremity pain after a reported fall yesterday. She was carrying an infant and tripped, and attempt to prevent falling on the incident, she landed on her leg. She states that she has pain with walking time. She denies any head injury or any additional prior injuries. She describes the pain as an aching sensation in her knee and her extremity. Denies chance of . Denies any sensation changes distally. Related Data Home Medications Medication Instructions Recorded Confirmed albuterol sulfate 90 mcg/actuation 2 puff inhalation QID PRN 02/19/18 02/16/21 aerosol inhaler (ProAir HFA) fluticasone 100 mcg-salmeterol 50 1 puff inhalation BID 02/19/18 02/16/21 mcg/dose blistr powdr for inhalation (Advair Diskus) sertraline 50 mg tablet 50 mg PO DAILY 03/22/19 02/16/21 meloxicam 7.5 mg tablet 7.5 mg PO BID 12/19/19 02/16/21 multivitamin 1 tab PO DAILY 12/19/19 02/16/21 omeprazole 20 mg capsule,delayed 20 mg PO DAILY 12/19/19 02/16/21 release polyethylene glycol 3350 17 17 g PO PRN PRN 12/19/19 02/16/21 gram/dose oral powder (Miralax) sennosides 8.6 mg capsule (senna) 8.6 mg PO DAILY 12/19/19 02/16/21 tramadol 50 mg tablet 50 mg PO BID 02/16/21 02/16/21 dulaglutide 3 mg/0.5 mL device subcut QWEEK 07/25/21 subcutaneous pen injector (Trulicity) levothyroxine 125 mcg tablet 1 tab PO DAILY 07/25/21 07/25/21 Allergies Allergy/AdvReac Type Severity Reaction Status Date / Time Penicillins Allergy Anaphylaxsi Unverified 07/25/21 13:06 s latex AdvReac Intermediate Skin Rash Unverified 07/25/21 13:06 General Stated Complaint: Orthopedic JAQUELINE: 4 Review of Systems Narrative: Review of systems obtained x3 and negative aside from medication HPI PFSH All Active Problems (Updated 07/26/21 @ 09:59 by DIA [place]) Acute leg pain (Acute) Constipation due to opioid therapy (Acute) Chronic low back pain (Acute) Insomnia (Acute) Intellectual functioning disability (Acute) Depressive disorder (Chronic) PTSD (post-traumatic stress disorder) (Acute) Morbid obesity (Acute) Vomiting (Acute) Medical History Asthma Back pain C9 disk herniation per pt Surgical History Hx of appendectomy S/P cholecystectomy Social History Smoking/Tobacco Use Status: Former Tobacco Use Smoking risk assessment performed?: Yes Alcohol Intake: never Drug use: Occasionally Substance use type: marijuana Current gender identity: female Do you feel safe at home: Yes Do you feel safe in your relationship?: Yes Exam Const General: cooperative, comfortable and no acute distress Neuro General: patient alert and patient oriented x3 Extrem General: normal to inspection Other: Right knee and ankle with tenderness, no visible evidence of trauma, distal pulses intact, sensation intact distally Course Vital Signs Vital signs: Vital Signs Temperature 36.4 C L 07/25/21 13:02 Pulse 96 H 07/25/21 13:02 Respiratory Rate 16 07/25/21 13:02 Blood Pressure 129/100 H 07/25/21 13:02 Pulse Oximetry 98 07/25/21 13:02 Temperature 36.4 C L 07/25/21 13:02 Temperature Source Temporal Artery Scan 07/25/21 13:02 Pulse 96 H 07/25/21 13:02 Respiratory Rate 16 07/25/21 13:02 Respiratory Effort Non-Labored 07/25/21 13:05 Blood Pressure 129/100 H 07/25/21 13:02 Blood Pressure Position Sitting 07/25/21 13:02 Pulse Oximetry 98 07/25/21 13:02 Oxygen Delivery Method Room Air 07/25/21 13:02 Oxygen Flow Rate 0 07/25/21 13:02 Pain Level 8 07/25/21 13:51 Lab/Test Results Lab/Test Results: POC- Test(urine) Negative
== END 2021-07-25 13:56 | disposition left against medical advice (07) ==
LOC: ER 13:05
PROVIDERS: Emergency Provider Physician Assistant; PCP Physician Assistant Medical
DX: M79.661 Pain in right lower leg (principal); Z53.29 Procedure and treatment not carried out because of patient's decision for other reasons; W01.0XXA Fall on same level from slipping, tripping and stumbling without subsequent striking against object, initial encounter
CPT/HCPCS: 81025; 99282

== ENCOUNTER 2021-07-30 15:59 | Emergency (ER) | payer MEDICARE, MEDICAID, SELFPAY ==
[2021-07-30 16:05] VITALS: BP 134/99; PULSE 98; RESP 18; TEMP 36.4; O2SAT 98
[2021-07-30] MEDS: Lactated Ringers 1,000 ML 1000 ML IV (17:27)
[2021-07-30 17:32] LABS: Abs Immature Grans 0.06 10^3/uL (0.0-0.06); Absolute Basophil Count 0.07 10^3/uL (0.0-0.2); Absolute Eosinophil Count 0.42 10^3/uL (0.0-0.7); Absolute Lymphocyte Count 2.02 10^3/uL (1.2-3.4); Absolute Monocyte Count 0.66 10^3/uL (0.1-0.8); Absolute Neutrophil Count 9.88 10^3/uL (1.2-6.7); Basophils % 0.5; Eosinophils % 3.2; HCT 43.6 % (36.0-46.0); HGB 13.3 g/dL (11.2-15.7); Immature Grans % 0.5; Lymphocytes % 15.4; MCH 24.3 pg (27.0-33.0); MCHC 30.5 % (32.0-36.0); MCV 80 fL (80-95); MPV 8.5 fL (8.0-11.0); Neutrophils % 75.4; Platelet Count 448 10^3/uL (130-400); RBC 5.48 10^6/uL (3.93-5.22); RDW 15.8 % (11.7-14.6); RDW-SD 44.9 fL; WBC 13.11 10^3/uL (4.4-10.8)
[2021-07-30 17:48] LABS: ALT 38 U/L (14-59); AST 21 U/L (15-37); Albumin 3.8 g/dL (3.4-5.0); Alkaline Phosphatase 104 U/L (46-116); BUN 13 mg/dL (7-18); Bilirubin, Total 0.3 mg/dL (0.2-1.0); CREATININE 1.2 mg/dL (0.55-1.02); Calcium 9.2 mg/dL (8.5-10.1); Chloride 104 mmol/L (98-107); Estimated GFR 51.43 (mL/min/1.73m2); Glucose 89 mg/dL (74-106); Lipase 43 U/L (73-393); Potassium 4.2 mmol/L (3.5-5.1); Sodium 141 mmol/L (136-145); Total Protein 8.3 g/dL (6.4-8.2)
[2021-07-30 18:22] VITALS: BP 139/88; PULSE 68; RESP 18; TEMP 36.9; O2SAT 100
--- NOTE | 2021-07-30 18:23 | W.ED.GENAD ---
Discharge Plan Disposition Patient Disposition: HOME Condition: Stable Discharge Details Clinical Impression: Nausea vomiting and diarrhea Primary Care Provider: Carlota Jason ED Provider: Rita Cisneros Home Meds and New Rx's Prescriptions: New promethazine 25 mg tablet 25 mg PO TID PRNQty: 10 0RF Continued meloxicam 7.5 mg tablet 7.5 mg PO BID polyethylene glycol 3350 [Miralax] 17 gram/dose powder 17 g PO PRN PRN multivitamin Tablet 1 tab PO DAILY omeprazole 20 mg capsule,delayed release(DR/EC) 20 mg PO DAILY senna 8.6 mg capsule 8.6 mg PO DAILY fluticasone propion-salmeterol [Advair Diskus] 100-50 mcg/dose Blister With Device 1 puff INHALATION BID albuterol sulfate [ProAir HFA] 90 mcg/actuation Hfa Aerosol Inhaler 2 puff INHALATION QID PRN sertraline 50 mg Tablet 50 mg PO DAILY tramadol 50 mg Tablet 50 mg PO BID levothyroxine 125 mcg tablet 1 tab PO DAILY Label Comments: TAKE ONE TABLET BY MOUTH EVERY DAY Trulicity 3 mg/0.5 mL pen injector SUBCUT QWEEK Label Comments: INJECT 3MG SUBCUTANEOUSLY EVERY WEEK Discharge Instructions Instructions: Acute Nausea and Vomiting (ED) Care Plan Goals: Take Phenergan as needed for nausea and vomiting Clear liquid diet as tolerated [place] diet as tolerated Referrals: Carlota Jason [Primary Care Provider] - Discharge Data Discharge Date/Time-TO BE ENTERED AT DEPARTURE: 07/30/21 18:55 Medical Decision Making Patient appears well, labs are not indicative of dehydration or suggestive of bacterial source of infection I suspect patient's symptoms are either gastroenteritis or related to spoiled food versus viral etiology of patient's symptoms Feeling mildly symptomatically improved She is able to tolerate p.o. She is discharged home in stable condition with stable vitals, labs are reviewed Return precautions discussed and patient expressed understanding Medical Records Medical records reviewed: Yes I reviewed the patient's medical records. Lab Data Lab results reviewed: Yes I reviewed the patient's lab results. HPI General Date/Time Provider Initiated Documentation: 07/30/21 16:36. HPI Narrative: This 36-year-old female with history of PTSD and diabetes presents with report of abdominal pain, nausea, vomiting. This started after eating at a fast food location. She states she ate an approximately an hour later she became ill. She denies any fever or chills. She rates abdominal cramping that is partially alleviated with diarrhea. She had 4-5 episodes of diarrhea with 3-4 episodes of nausea and vomiting. she had a dose of Zofran without alleviation in pain. Related Data Home Medications Medication Instructions Recorded Confirmed albuterol sulfate 90 mcg/actuation 2 puff inhalation QID PRN 02/19/18 07/30/21 aerosol inhaler (ProAir HFA) fluticasone 100 mcg-salmeterol 50 1 puff inhalation BID 02/19/18 07/30/21 mcg/dose blistr powdr for inhalation (Advair Diskus) sertraline 50 mg tablet 50 mg PO DAILY 03/22/19 07/30/21 meloxicam 7.5 mg tablet 7.5 mg PO BID 12/19/19 07/30/21 multivitamin 1 tab PO DAILY 12/19/19 07/30/21 omeprazole 20 mg capsule,delayed 20 mg PO DAILY 12/19/19 07/30/21 release polyethylene glycol 3350 17 17 g PO PRN PRN 12/19/19 07/30/21 gram/dose oral powder (Miralax) sennosides 8.6 mg capsule (senna) 8.6 mg PO DAILY 12/19/19 07/30/21 tramadol 50 mg tablet 50 mg PO BID 02/16/21 07/30/21 dulaglutide 3 mg/0.5 mL device subcut QWEEK 07/25/21 subcutaneous pen injector (Trulicity) levothyroxine 125 mcg tablet 1 tab PO DAILY 07/25/21 07/30/21 promethazine 25 mg tablet 25 mg PO TID PRN #10 tabs 07/30/21 Previous Rx's Medication Instructions Recorded promethazine 25 mg tablet 25 mg PO TID PRN #10 tabs 07/30/21 Allergies Allergy/AdvReac Type Severity Reaction Status Date / Time Penicillins Allergy Anaphylaxsi Unverified 07/30/21 16:09 s latex AdvReac Intermediate Skin Rash Unverified 07/30/21 16:09 General Stated Complaint: Abd Prob JAQUELINE: 4 Review of Systems All systems reviewed & are unremarkable except as noted in HPI and below PFSH All Active Problems (Updated 07/30/21 @ 18:32 by DIA [place]) Acute leg pain (Acute) Nausea vomiting and diarrhea (Acute) Constipation due to opioid therapy (Acute) Chronic low back pain (Acute) Insomnia (Acute) Intellectual functioning disability (Acute) Depressive disorder (Chronic) PTSD (post-traumatic stress disorder) (Acute) Morbid obesity (Acute) Vomiting (Acute) Medical History Asthma Back pain C9 disk herniation per pt Surgical History Hx of appendectomy S/P cholecystectomy Social History Smoking/Tobacco Use Status: Former Tobacco Use Smoking risk assessment performed?: Yes Alcohol Intake: never Drug use: Occasionally Substance use type: marijuana Current gender identity: female Do you feel safe at home: Yes Do you feel safe in your relationship?: Yes Exam Const General: cooperative, comfortable and no acute distress Resp Effort & Inspection: normal respiratory effort Auscultation: clear to auscultation bilaterally Cardio Rate: regular rate Rhythm: regular rhythm GI Other: Mild diffuse tenderness without rebound or guarding Skin General skin exam: no rashes or lesions noted Neuro General: patient alert and patient oriented x3 Course Vital Signs Vital signs: Vital Signs Temperature 36.4 C L 07/30/21 16:05 Pulse 98 H 07/30/21 16:05 Respiratory Rate 18 07/30/21 16:05 Blood Pressure 134/99 H 07/30/21 16:05 Pulse Oximetry 98 07/30/21 16:05 Temperature 36.4 C L 07/30/21 16:05 Temperature Source Skin 07/30/21 16:05 Pulse 98 H 07/30/21 16:05 Respiratory Rate 18 07/30/21 16:05 Respiratory Effort 07/30/21 16:41 Blood Pressure 134/99 H 07/30/21 16:05 Blood Pressure Position Standing 07/30/21 16:05 Pulse Oximetry 98 07/30/21 16:05 Oxygen Delivery Method Room Air 07/30/21 16:05 Oxygen Flow Rate 0 07/30/21 16:05 Pain Level 5 07/30/21 16:05 Lab/Test Results Lab/Test Results: Laboratory Tests Range/Units 07/30/21 17:20 Sodium (136-145) mmol/L 141 Potassium (3.5-5.1) mmol/L 4.2 Chloride (98-107) mmol/L 104 Carbon Dioxide (21.0-32.0) mmol/L 27.0 Anion Gap (3-11) mmol/L 10.0 BUN (7-18) mg/dL 13 Creatinine (0.55-1.02) mg/dL 1.2 H Estimated GFR/1.73 m2 (mL/min/1.73m2) 51.43 Glucose (74-106) mg/dL 89 Calcium (8.5-10.1) mg/dL 9.2 Total Bilirubin (0.2-1.0) mg/dL 0.3 AST (15-37) U/L 21 ALT (14-59) U/L 38 Alkaline Phosphatase (46-116) U/L 104 Total Protein (6.4-8.2) g/dL 8.3 H Albumin (3.4-5.0) g/dL 3.8 Lipase (73-393) U/L 43 POC- Test(urine) Negative
[2021-07-30 18:56] LABS: Bilirubin Negative (Negative); Blood Negative (Negative); Clarity Clear (Clear); Glucose Negative (Negative); Ketones Negative (Negative); Leukocyte Esterase Negative (Negative); Nitrite Negative (Negative); Specific Gravity 1.025 (1.005-1.025); Urobilinogen 0.2 EU/dL (Up TO 0.2)
== END 2021-07-30 18:55 | disposition home or self-care (01) ==
PROVIDERS: Emergency Provider Physician Assistant; PCP Physician Assistant Medical
DX: R11.2 Nausea with vomiting, unspecified (principal); R19.7 Diarrhea, unspecified
CPT/HCPCS: 36415; 80053; 81025; 83690; 96361; 96374; 96375; 99284; 81003; 85025; 99283

== ENCOUNTER 2021-09-23 13:16 | Emergency (ER) | payer MEDICARE, MEDICAID, SELFPAY ==
[2021-09-23 13:23] VITALS: BP 112/60; PULSE 90; RESP 20; TEMP 36.5; O2SAT 95
--- NOTE | 2021-09-23 14:00 | DI.US_ITS ---
Exam(s) US LOWER EXTREMITY VENOUS RT EXAM: US LOWER EXTREMITY VENOUS RT CLINICAL HISTORY: pain, swelling. TECHNIQUE: Lower extremity venous ultrasound performed using grayscale, color-flow, and spectral Do ppler analysis. COMPARISON: No exams were available for comparison FINDINGS: The common femoral, femoral and popliteal veins demonstrate normal compressibility, augmentation, and color Doppler. The posterior tibial veins are patent. No saphenous vein thrombosis or other superfi cial venous thrombosis is seen. No hematoma or Aviles's cyst is seen. IMPRESSION: Negative lower extremity ultrasound. No evidence of DVT. DATA REPOSITORY:
--- NOTE | 2021-09-23 14:11 | ED.GENADUL_ITS ---
Discharge Plan Disposition Patient Disposition: HOME Condition: Stable Discharge Details Clinical Impression: Pain in right lower leg Primary Care Provider: Carlota Jason ED Provider: Maurizio Lawler Home Meds and New Rx's Prescriptions: New Eliquis 5 mg tablet 5 mg PO BID Qty: 60 0RF Continued polyethylene glycol 3350 [Miralax] 17 gram/dose powder 17 g PO PRN PRN multivitamin Tablet 1 tab PO DAILY albuterol sulfate [ProAir HFA] 90 mcg/actuation Hfa Aerosol Inhaler 2 puff INHALATION QID PRN levothyroxine 125 mcg tablet 1 tab PO DAILY Label Comments: TAKE ONE TABLET BY MOUTH EVERY DAY Trulicity 3 mg/0.5 mL pen injector 3 mg SUBCUT QWEEK Label Comments: INJECT 3MG SUBCUTANEOUSLY EVERY WEEK bupropion HCl 150 mg tablet sustained-release 12 hr 150 mg PO DAILY Label Comments: TAKE ONE TABLET BY MOUTH EVERY MORNING hydrocodone-acetaminophen 7.5-325 mg tablet 1 tab PO TID PRN Label Comments: TAKE ONE TABLET BY MOUTH THREE TIMES A DAY pantoprazole 40 mg Tablet,Delayed Release (Dr/Ec) 40 mg PO DAILY ondansetron 4 mg tablet,disintegrating 1 tab PO DAILY PRN Label Comments: DISSOLVE ONE TO TWO TABLETS ON TONGUE EVERY DAY NEEDED Discontinued meloxicam 7.5 mg tablet 7.5 mg PO BID omeprazole 20 mg capsule,delayed release(DR/EC) 20 mg PO DAILY senna 8.6 mg capsule 8.6 mg PO DAILY fluticasone propion-salmeterol [Advair Diskus] 100-50 mcg/dose Blister With Device 1 puff INHALATION BID sertraline 50 mg Tablet 50 mg PO DAILY promethazine 25 mg tablet 25 mg PO TID PRNQty: 10 0RF Discharge Instructions Instructions: Leg Pain (ED) Additional Instructions: Medication reconciliation could not be performed today. Please take your medications as prescribed and discuss any questions regarding her medications with your prescribing physician. Ultrasound of your right lower extremity today did not reveal a blood clot. Plan will be to initiate treatment with blood thinner Eliquis. I do recommend that you discuss ongoing anticoagulation with your primary care physician. Please contact your primary care physician to arrange follow-up. Call today. Return to the ER immediately for any worsening or new concerning symptoms. Medical Decision Making 36-year-old female with history of prior remote DVT, no longer anticoagulated, here with right lower extremity pain and associated mild swelling over the past 3 days. Patient has tenderness in her right calf and right proximal medial lower leg. No inflammatory changes or signs of infection. Ultrasound of the right lower extremity interpreted by radiology: Negative for DVT. Consider superficial thrombosis versus musculoskeletal etiology. I attempted to contact the primary care physician to discuss continued outpatient treatment and she is not available today, no covering physician available. Shared decision making discussion with the patient and plan to initiate treatment with Eliquis given prior DVT prophylaxis. I will have her follow-up with her primary care physician. Usual customary discharge instructions reviewed with the patient. HPI General Mode of arrival: ambulatory . Date/Time Provider Initiated Documentation: 09/23/21 13:48 . Limitations to Documentation: no limitations . Information obtained by: patient . HPI Narrative: 36-year-old female presents with chief complaint of right lower leg pain. Pain started 3 days ago and has persisted. Pain is localized to her right lower leg, proximal medially and posteriorly. She notes associated swelling and also notes that leg seemed discolored and darker than normal last night. Patient does state remote history of DVT that was initially treated with anticoagulation. Patient stopped anticoagulation about 4-5 years ago without primary care physician aware of this discontinuation. Patient denies fever. Related Data Home Medications Medication Instructions Recorded Confirmed albuterol sulfate 90 mcg/actuation 2 puff inhalation QID PRN 02/19/18 09/23/21 aerosol inhaler (ProAir HFA) multivitamin 1 tab PO DAILY 12/19/19 07/30/21 polyethylene glycol 3350 17 17 g PO PRN PRN 12/19/19 07/30/21 gram/dose oral powder (Miralax) dulaglutide 3 mg/0.5 mL 3 mg subcut QWEEK 07/25/21 09/23/21 subcutaneous pen injector (Trulicity) levothyroxine 125 mcg tablet 1 tab PO DAILY 07/25/21 07/30/21 apixaban 5 mg tablet (Eliquis) 5 mg PO BID #60 tabs 09/23/21 bupropion HCl 150 mg tablet,12 hr 150 mg PO DAILY 09/23/21 09/23/21 sustained-release hydrocodone 7.5 mg-acetaminophen 1 tab PO TID PRN 08/12/22 08/12/22 325 mg tablet ondansetron 4 mg disintegrating 1 tab PO DAILY PRN 09/23/21 09/23/21 tablet pantoprazole 40 mg tablet,delayed 40 mg PO DAILY 09/23/21 09/23/21 release Previous Rx's Medication Instructions Recorded apixaban 5 mg tablet (Eliquis) 5 mg PO BID #60 tabs 09/23/21 Allergies Allergy/AdvReac Type Severity Reaction Status Date / Time Penicillins Allergy Anaphylaxsi Unverified 09/23/21 13:29 s latex AdvReac Intermediate Skin Rash Unverified 09/23/21 13:29 General Stated Complaint: Vascular JAQUELINE: 3 Review of Systems All systems reviewed & are unremarkable except as noted in HPI and below Constitutional Constitutional: Denies fever(s) Gastrointestinal Gastrointestinal: Denies abdominal pain PFSH All Active Problems (Updated 09/23/21 @ 15:48 by Maurizio Lawler MD) Pain in right lower leg (Acute) Constipation due to opioid therapy (Acute) Chronic low back pain (Acute) Insomnia (Acute) Intellectual functioning disability (Acute) Depressive disorder (Chronic) PTSD (post-traumatic stress disorder) (Acute) Morbid obesity (Acute) Vomiting (Acute) Medical History Asthma Back pain C9 disk herniation per pt Surgical History Hx of appendectomy S/P cholecystectomy Social History Smoking/Tobacco Use Status: Former Tobacco Use Smoking risk assessment performed?: Yes Alcohol Intake: never Drug use: Occasionally Substance use type: marijuana Current gender identity: female Do you feel safe at home: Yes Do you feel safe in your relationship?: Yes Exam Const General: cooperative and no acute distress HENMT Mouth: moist mucous membranes Resp Auscultation: clear to auscultation bilaterally, no rales, no rhonchi and no wheezes Cardio Rate: regular rate and not tachycardic Rhythm: regular rhythm GI Palpation: soft and nontender Skin General skin exam: no rashes or lesions noted Neuro General: patient alert, patient awake and tone normal Extrem Right lower extremity: lower leg Details: tenderness; no erythema, no pitting edema, no deformity and no unusual warmth Course Vital Signs Vital signs: Vital Signs Temperature 36.5 C 09/23/21 13:23 Pulse 90 09/23/21 13:23 Respiratory Rate 20 09/23/21 13:23 Blood Pressure 112/60 09/23/21 13:23 Pulse Oximetry 95 09/23/21 13:23 Temperature 36.5 C 09/23/21 13:23 Temperature Source Skin 09/23/21 13:23 Pulse 90 09/23/21 13:23 Respiratory Rate 20 09/23/21 13:23 Respiratory Effort 09/23/21 13:28 Blood Pressure 112/60 09/23/21 13:23 Blood Pressure Position Sitting 09/23/21 13:23 Pulse Oximetry 95 09/23/21 13:23 Oxygen Delivery Method Room Air 09/23/21 13:23 Oxygen Flow Rate 0 09/23/21 13:23 Pain Level 7 09/23/21 13:23
[2021-09-23 14:57] VITALS: RESP 18
[2021-09-23 16:25] VITALS: BP 142/80; PULSE 75; RESP 18; TEMP 36.3; O2SAT 99
[2021-09-23] MEDS: Apixaban 5 MG TAB PO (16:25)
== END 2021-09-23 16:28 | disposition home or self-care (01) ==
PROVIDERS: Emergency Provider Student in an Organized Health Care Education/Training Program; PCP Physician Assistant Medical
DX: M79.661 Pain in right lower leg (principal); M79.89 Other specified soft tissue disorders; J45.909 Unspecified asthma, uncomplicated; Z87.891 Personal history of nicotine dependence
CPT/HCPCS: 99284; 93971

== ENCOUNTER 2022-03-20 21:11 | Emergency (ER) | payer MEDICARE, MEDICAID, SELFPAY ==
[2022-03-20 21:14] VITALS: BP 155/99; PULSE 97; RESP 18; TEMP 36.8; O2SAT 97
[2022-03-20 21:21] VITALS: RESP 18
--- NOTE | 2022-03-20 21:45 | DI.RAD_ITS ---
Exam(s) XR FINGER LT MIDDLE EXAM: XR FINGER LT MIDDLE CLINICAL HISTORY: Pain, Swelling. TECHNIQUE: 2D digital imaging was performed. COMPARISON: No exams were available for comparison FINDINGS: 3 views There is mild soft tissue swelling. No fractures. No dislocation. No radiopaque foreign body. No degenerative changes. No osseous lesions. No erosions. IMPRESSION: No significant osseous findings. DATA REPOSITORY: RADIATION DOSE DELIVERED:
--- NOTE | 2022-03-20 21:51 | ED.GENADUL_ITS ---
Discharge Plan Disposition Patient Disposition: Home Condition: Stable Discharge Details Clinical Impression: Paronychia of finger of left hand Primary Care Provider: Carlota Jason ED Provider: Lynne Rutledge Home Meds and New Rx's Prescriptions: New cephalexin 500 mg tablet 500 mg PO BID 7 Days Qty: 14 0RF Continued polyethylene glycol 3350 [Miralax] 17 gram/dose powder 17 g PO PRN PRN multivitamin Tablet 1 tab PO DAILY albuterol sulfate [ProAir HFA] 90 mcg/actuation Hfa Aerosol Inhaler 2 puff INHALATION QID PRN levothyroxine 125 mcg tablet 1 tab PO DAILY Label Comments: TAKE ONE TABLET BY MOUTH EVERY DAY Trulicity 3 mg/0.5 mL pen injector 3 mg SUBCUT QWEEK Label Comments: INJECT 3MG SUBCUTANEOUSLY EVERY WEEK bupropion HCl 150 mg tablet sustained-release 12 hr 150 mg PO DAILY Label Comments: TAKE ONE TABLET BY MOUTH EVERY MORNING hydrocodone-acetaminophen 7.5-325 mg tablet 1 tab PO TID PRN Label Comments: TAKE ONE TABLET BY MOUTH THREE TIMES A DAY pantoprazole 40 mg Tablet,Delayed Release (Dr/Ec) 40 mg PO DAILY ondansetron 4 mg tablet,disintegrating 1 tab PO DAILY PRN Label Comments: DISSOLVE ONE TO TWO TABLETS ON TONGUE EVERY DAY NEEDED Eliquis 5 mg tablet 5 mg PO BID Qty: 60 0RF Discharge Instructions Instructions: Paronychia (ED) Additional Instructions: Soak in warm diluted vinegar water 3 times a day for 15-20 minutes. Apply antibiotic ointment three times a day. If no improvement after 2 or 3 days of topical antibiotic start the oral antibiotics and take with Yogurt or a probiotic as directed. Follow up with primary care provider in 3-5 days for a recheck. Follow up with Orthopedics if any worsening or concerns. Referrals: Carlota Jason [Primary Care Provider] - 3 days Blaze Crowell MD [ [facility] STAFF PHYSICIAN] - Return if symptoms worsen Medical Decision Making 37-year-old female with a past medical history of DVT, PTSD, depression, obesity, asthma presents to the ER with chief complaint of little finger pain and swelling which she noticed today 2 days ago. She reports noting red streaks that have since disappeared. She does have a swollen erythemic distal middle finger. She does have some gel nail greek which she reports she placed at home. No obvious area of abscess noted. Instructed RN to stop finger and diluted Betadine and saline, will place Ba ctroban ointment three times daily. Xray ordered to rule out underlying FB or Injury. X-ray within normal limits. Patient soaking with Betadine and saline. Patient given Bactroban ointment and a prescription for cephalexin and instructed on home care follow-up. She does have a PCP appointment on . Encouraged her to keep this. Discussed further follow-up and strict return instructions if any worsening she verbalized understanding. This text was generated using [employer] dictation system, please disregard any oddities of phrase or misspellings. HPI General Mode of arrival: ambulatory . Date/Time Provider Initiated Documentation: 03/20/22 21:38 . Limitations to Documentation: no limitations . Information obtained by: patient, RN notes reviewed and old records reviewed . HPI Narrative: 37-year-old female with a past medical history of DVT, PTSD, depression, obesity, asthma presents to the ER with chief complaint of little finger pain and swelling which she noticed today 2 days ago. She reports noting red streaks that have since disappeared. She does have a swollen erythemic distal middle finger. She does have some gel nail greek which she reports she placed at home. No obvious area of abscess noted. She has been taking Tylenol and hydrocodone with little to no relief. She denies any known injury no obvious deformity. Related Data Home Medications Medication Instructions Recorded Confirmed albuterol sulfate 90 mcg/actuation 2 puff inhalation QID PRN 02/19/18 03/20/22 aerosol inhaler (ProAir HFA) multivitamin 1 tab PO DAILY 12/19/19 03/20/22 polyethylene glycol 3350 17 17 g PO PRN PRN 12/19/19 03/20/22 gram/dose oral powder (Miralax) dulaglutide 3 mg/0.5 mL 3 mg subcut QWEEK 07/25/21 03/20/22 subcutaneous pen injector ([facility]) levothyroxine 125 mcg tablet 1 tab PO DAILY 07/25/21 03/20/22 apixaban 5 mg tablet (Eliquis) 5 mg PO BID #60 tabs 09/23/21 03/20/22 bupropion HCl 150 mg tablet,12 hr 150 mg PO DAILY 09/23/21 03/20/22 sustained-release hydrocodone 7.5 mg-acetaminophen 1 tab PO TID PRN 09/23/21 03/20/22 325 mg tablet ondansetron 4 mg disintegrating 1 tab PO DAILY PRN 09/23/21 03/20/22 tablet pantoprazole 40 mg tablet,delayed 40 mg PO DAILY 09/23/21 03/20/22 release cephalexin 500 mg tablet 500 mg PO BID 7 days #14 tabs 03/20/22 Previous Rx's Medication Instructions Recorded apixaban 5 mg tablet (Eliquis) 5 mg PO BID #60 tabs 09/23/21 cephalexin 500 mg tablet 500 mg PO BID 7 days #14 tabs 03/20/22 Allergies Allergy/AdvReac Type Severity Reaction Status Date / Time Penicillins Allergy Anaphylaxsi Unverified 03/20/22 21:26 s latex AdvReac Intermediate Skin Rash Unverified 03/20/22 21:26 General Stated Complaint: GenMedical JAUQELINE: 3 Review of Systems Musculoskeletal Musculoskeletal: Reports as per HPI, Reports arthralgias, Reports joint swelling and Reports limited range of motion Integumentary/Breasts Skin/Breast: Reports as per HPI PFSH All Active Problems (Updated 03/20/22 @ 22:05 by Lynne Rutledge NP) Paronychia of finger of left hand (Acute) Constipation due to opioid therapy (Acute) Chronic low back pain (Acute) Insomnia (Acute) Intellectual functioning disability (Acute) Depressive disorder (Chronic) PTSD (post-traumatic stress disorder) (Acute) Morbid obesity (Acute) Vomiting (Acute) Medical History Asthma Back pain C9 disk herniation per pt Surgical History Hx of appendectomy S/P cholecystectomy Social History Smoking/Tobacco Use Status: Former Tobacco Use Smoking risk assessment performed?: Yes Alcohol Intake: never Drug use: Never Substance use type: does not use Current gender identity: female Do you feel safe at home: Yes Do you feel safe in your relationship?: Yes Exam Extrem Left upper extremity: wrist Details: normal to inspection and normal ROM and hand Details: tenderness Location: of the 3rd digit Location: at the distal phalanx, at the nailbed, on the dorsal aspect and on the palmar aspect and swelling Hand/finger images: 1. Distal Finger erythema, tenderness. Suspected Paronychia Course Vital Signs Vital signs: Vital Signs Temperature 36.8 C 03/20/22 21:14 Pulse 97 H 03/20/22 21:14 Respiratory Rate 18 03/20/22 21:14 Blood Pressure 155/99 H 03/20/22 21:14 Pulse Oximetry 97 03/20/22 21:14 Temperature 36.8 C 03/20/22 21:14 Pulse 97 H 03/20/22 21:14 Respiratory Rate 18 03/20/22 21:21 Respiratory Effort 03/20/22 21:21 Blood Pressure 155/99 H 03/20/22 21:14 Blood Pressure Position Sitting 03/20/22 21:14 Pulse Oximetry 97 03/20/22 21:14 Oxygen Delivery Method Room Air 03/20/22 21:14 Oxygen Flow Rate 0 03/20/22 21:14 Pain Level 8 03/20/22 21:14
[2022-03-20] MEDS: Ibuprofen 600 MG TAB PO (22:01)
[2022-03-20] MEDS: Mupirocin 2% Oint. 22 GM TUBE TP (22:02)
--- NOTE | 2022-03-20 22:21 | DI.VRAD_ITS ---
PROCEDURE INFORMATION: Exam: XR Left Finger(s) Exam date and time: 03/20/2022 10:03 PM Age: 37 years old Clinical indication: Other: Pain, swelling TECHNIQUE: Imaging protocol: Radiologic exam of the Left fingers. Views: Minimum 2 views. COMPARISON: No relevant prior studies available. FINDINGS: Bones/joints: A PA view of the left hand is submitted with oblique and lateral views of the middle finger. No acute fracture or dislocation is seen. No bony erosions are demonstrated. Soft tissues: No radiopaque foreign body is seen. There is apparent soft tissue swelling in the hand and fingers. IMPRESSION: No acute bony abnormality identified. Dictated and Authenticated by: Eleno Akhtar MD. Ordering:WILLIE Batista MD
[2022-03-20 22:49] VITALS: BP 152/98; PULSE 98; RESP 18; O2SAT 97
== END 2022-03-20 22:52 | disposition home or self-care (01) ==
PROVIDERS: Emergency Provider Registered Nurse Emergency; PCP Physician Assistant Medical
DX: L03.012 Cellulitis of left finger (principal)
CPT/HCPCS: 99283; 73140; 99284